=== PATIENT | female | born 1955 | race Caucasian/White ===

== ENCOUNTER 2019-10-16 10:11 | Inpatient (IN) | payer OTHER ==
[~2019-10-16] VITALS: Ht 162.5 cm; Wt 66.8 kg
[2019-10-16 10:20] VITALS: BP 136/823
[2019-10-16] MEDS ORDERED: ELIQUIS2.5 M1 PO (10:40)
[2019-10-16] MEDS ORDERED: NEURONTIN800 MG PO (10:40)
[2019-10-16] MEDS ORDERED: KEPPRA750 MG PO (10:41)
[2019-10-16] MEDS ORDERED: XANAX0.5 MG PO (10:41)
[2019-10-16] MEDS ORDERED: OXYCONTIN15 M1 PO (10:42)
[2019-10-16] MEDS ORDERED: TOPAMAX100 M1 PO (10:42)
[2019-10-16 11:37] LABS: BASO % 0.3 % (0.0-1.0); EOS # 0.1 10*3/uL (0.0-0.4); EOS % 0.5 % (1.0-4.0); HEMATOCRIT 42.5 % (37.0-47.0); LYMPH # 1.9 10*3/uL (1.3-4.4); MEAN CELL VOLUME 98.6 fl (81.0-99.0); MEAN CORPUSCULAR HGB 31.3 pg (27.0-31.0); MEAN CORPUSCULAR HGB CONC 31.8 g/dl (33.0-37.0); MEAN PLATELET VOLUME 8.8 fl (9.6-12.3); MONO # 0.3 10*3/uL (0.1-1.0); NEUT # 6.9 10*3/uL (2.3-7.9); NEUT % 74.9 % (47.0-73.0); PLATELET COUNT AUTOMATED 208 10*3/uL (130-400); RED BLOOD COUNT 4.31 10*6/uL (4.10-5.10); RED CELL DISTRI WIDTH 12.7 % (0-14.5); WHITE BLOOD COUNT 9.2 10*3/uL (4.8-10.8)
[2019-10-16 11:47] LABS: ACT PARTIAL THROMBO TIME 23.1 SECONDS (20.0-32.1)
[2019-10-16 11:54] LABS: ALBUMIN 3.5 gm/dl (3.1-4.5); ALKALINE PHOSPHATASE 119 U/L (45-117); BUN 16 mg/dl (7-24); CHLORIDE 114 mmol/L (98-107); CREATININE 1.09 mg/dL (0.55-1.02); POTASSIUM 3.9 mmol/L (3.5-5.1); SGOT/AST 16 IU/L (3-35); SGPT/ALT 33 U/L (12-78); SODIUM 139 mmol/L (136-145); TOTAL PROTEIN 7.6 gm/dL (6.4-8.2)
[2019-10-16 11:55] LABS: TROPONIN I 0.043 ng/ml (<0.045)
[2019-10-16 12:00] VITALS: BP 146/93
[2019-10-16 16:00] VITALS: BP 146/93
[2019-10-16 16:40] VITALS: BP 146/93
--- NOTE | 2019-10-16 16:40 | NUR ---
A 53, admitted to , under the services of ERMA Wilson DO with a diagnosis of SUSPECTED COVID-19, DYSPNEA. Chief complaint is SHORTNESS OF BREATH, CHEST PAIN. Patient arrived via bed from ER. Monitor applied. Initial assessment completed. Vital signs taken and recorded. ERMA WILSON DO notified of admission to the unit. Orders received. See assessment for past medical history, medications and allergies. Patient and/or family oriented to unit. [facility] visitation policy reviewed. Clothing/patient valuable form completed. SARINA BERMUDEZ
[2019-10-16] MEDS ORDERED: ELIQUIS5 M1 PO (17:25)
[2019-10-16] MEDS ORDERED: SOMA350 MG PO (17:26)
[2019-10-16] MEDS ORDERED: SEROQUEL XR300 MG PO (17:27)
[2019-10-16] MEDS ORDERED: PRILOSEC20 M1 PO (17:27)
[2019-10-16] MEDS ORDERED: ZOCOR20 MG PO (17:27)
[2019-10-16] MEDS ORDERED: VENT7GM INH (17:28)
[2019-10-16 20:00] VITALS: BP 123/67
--- NOTE | 2019-10-16 20:40 | NUR ---
SPOKE WITH DR LA REGARDING UPDATED MED REC. STATES SHE WILL TAKE A LOOK AT IT. ALSO NOTIFIED HER OF PATIENT COMPLAINT OF "05/13 CHRONIC BACK PAIN". PATIENT DOESN'T APPEAR TO BE IN ANY OVERT DISTRESS. VITALS STABLE. WILL MONITOR. AWAITING NEW ORDERS.
--- NOTE | 2019-10-16 22:35 | NUR ---
DR ABEL NOTIFIED OF CRITICAL TROPONIN 0.055.
--- NOTE | 2019-10-16 23:23 | NUR ---
OXYCODONE ADMINISTERED FOR PT C/O "05/13 BACK PAIN". WILL MONITOR.
[2019-10-17] VITALS: BP 97/68
[2019-10-17 00:48] VITALS: BP 100/64
[2019-10-17 05:42] VITALS: BP 106/78
[2019-10-17 06:35] LABS: BASO % 0.6 % (0.0-1.0); EOS # 0.2 10*3/uL (0.0-0.4); EOS % 2.1 % (1.0-4.0); LYMPH % 41.9 % (27.0-41.0); MEAN CELL VOLUME 96.1 fl (81.0-99.0); MEAN CORPUSCULAR HGB CONC 32.3 g/dl (33.0-37.0); MEAN PLATELET VOLUME 8.5 fl (9.6-12.3); MONO # 0.4 10*3/uL (0.1-1.0); MONO % 5.3 % (3.0-9.0); NEUT # 3.5 10*3/uL (2.3-7.9); NEUT % 49.7 % (47.0-73.0); PLATELET COUNT AUTOMATED 163 10*3/uL (130-400); RED BLOOD COUNT 4.06 10*6/uL (4.10-5.10); RED CELL DISTRI WIDTH 12.8 % (0-14.5); WHITE BLOOD COUNT 7.1 10*3/uL (4.8-10.8)
[2019-10-17 06:47] LABS: BUN 20 mg/dl (7-24); CHLORIDE 115 mmol/L (98-107); CREATININE 1.09 mg/dL (0.55-1.02); SODIUM 141 mmol/L (136-145)
[2019-10-17 08:00] VITALS: BP 112/72
--- NOTE | 2019-10-17 08:00 | NUR ---
VS STABLE. HEPARIN LOCK INPLACE. ALERT,ORIENTATED X 3. DENIES DISCOMFORT AT PRESENT TIME. TODD RAMSEYRN
[2019-10-17] MEDS ORDERED: OXYCODONE HCL10 M1 PO (10:23)
[2019-10-17 12:00] VITALS: BP 121/71
--- NOTE | 2019-10-17 13:17 | NUR ---
Ethnic Studies Professor in to talk to patient. Patient states lives at HOME with ALONE. There are 15 steps in the home. Physician: MAGGIE [facility]acy: [facility] Home health services: NONE Patient's level of ADLs: INDEPENDENT Patient has working utilities: YES DME: NONE Follow-up physician's appointment after d/c: PREFERS TO MAKE OWN AFTER DISCHARGE Does patient want to access PORTAL?: NO Discharge plan PT STATES SHE LIVES ALONE AND IS INDEPENDENT IN HER CARE. STATES SHE DOES NOT HAVE A RIDE TO GET HOME. WILL CHECK WITH HER INSURANCE TO SEE IF SHE HAS TRANSPORTATION BENEFITS. NO OTHER NEEDS AT THIS TIME. . LUCRECIA BURGOS
--- NOTE | 2019-10-17 13:49 | NUR ---
HOME DECORATOR contacted patients insurance. Patient does not have any travel benefits. HOME DECORATOR informed Entry Level Financial Analyst Diana Ruiz of this.
--- NOTE | 2019-10-17 13:53 | NUR ---
PT IN HALLWAY AGITATED AND DEMANDING RX FOR PAIN MEDICATION, TO BE TAKEN TO THE PHARMACY TO PICK IT UP. EXPLAINED TO PATIENT THAT SHE COULD NOT BE WALKING THUR THE HOSPITAL. THIS RN HAD FAXED RX TO PHARMACY TO BE FILLED PRIOR TO DISCHARGE. PATIENT ASKED TO RETURN TO ROOM. PATIENT REMAINS VERY AGITATED, "STATING YOUR THE ONE THAT WANTS ME OUT OF HERE, SO YOU BETTER GET IT DONE." TODD RAMSEY RN
--- NOTE | 2019-10-17 14:00 | NUR ---
PT STATING SHE DOES NOT HAVE A RIDE HOME. CALLED [facility] THEY STATE PT HAD TRASPORTATION BENEFITS IN [place] BUT HAS NEVER CHANGED IT TO [place]. TALKED WITH PT AND SHE STATES IT SHOULD BE THE SAME. GAVE HER THE NUMBER TO CALL AND HAVE IT CHANGED TO [place]. PT STATES SHE CAN NOT AFFORD THE CAB FARE OF $30.10 TO GET TO [place] AND HAS NO FRIENDS OR FAMILY TO COME AND GET HER. ASKED HER IF SHE HAD A CELL PHONE SO SHE COULD CALL [facility] HERSELF. STATES SHE WOULD.
--- NOTE | 2019-10-17 14:07 | NUR ---
PT IS DISCHARGED AND AWAITING RIDE TO HOME. REMAINS AGITATED AND ANGRY CURRENT SITUATION. TODD RAMSEY RN
--- NOTE | 2019-10-17 14:25 | NUR ---
PT CALLED BACK AND STATES SHE HAS A RIDE HOME. STATES SHE WANTS SOMEONE TO WHEEL HER DOWN TO GET HER PERSCRIPTION AND THEN SHE WANTS TO GO OUTSIDE AND WAIT FOR RIDE AND SMOKE. EXPLAINED WE ARE NON SMOKING FACILITY AND SHE CAN NOT SMOKE ON HOSPITAL PROPERTY. STATES SHE WILL GO OFF PROPERTY THEN. MARLY BROOKS INFORMED.
== END 2019-10-17 14:07 | disposition home or self-care (01) | DRG 204 ==
LOC: ED 10:11 → 5E 15:14 → EDBD 15:14 → 5E 15:14 → EDHOLD 15:14 → 5E 15:23
PROVIDERS: Emergency Medicine; Student in an Organized Health Care Education/Training Program; ADMIT Internal Medicine
DX: R05 Cough (principal); Z20.828 Contact with and (suspected) exposure to other viral communicable diseases; E87.8 Other disorders of electrolyte and fluid balance, not elsewhere classified; E83.41 Hypermagnesemia; M54.9 Dorsalgia, unspecified; G89.29 Other chronic pain; F31.9 Bipolar disorder, unspecified; Z88.8 Allergy status to other drugs, medicaments and biological substances; Z88.6 Allergy status to analgesic agent; Z79.01 Long term (current) use of anticoagulants; Z79.899 Other long term (current) drug therapy; Z86.73 Personal history of transient ischemic attack (TIA), and cerebral infarction without residual deficits; Z82.49 Family history of ischemic heart disease and other diseases of the circulatory system

== ENCOUNTER 2019-12-08 13:25 | Inpatient (IN) | payer OTHER, MEDICAID ==
[~2019-12-08] VITALS: Ht 162.6 cm; Wt 69.5 kg
[~2019-12-08 13:25] MED LIST: ELIQUIS2.5 M1 PO; ELIQUIS5 M1 PO; KEPPRA750 MG PO; NEURONTIN800 MG PO; OXYCODONE HCL10 M1 PO; OXYCONTIN15 M1 PO; PRILOSEC20 M1 PO; SEROQUEL XR300 MG PO; SOMA350 MG PO; TOPAMAX100 M1 PO; VENT7GM INH; XANAX0.5 MG PO; ZOCOR20 MG PO
[2019-12-08 13:29] VITALS: BP 138/71
[2019-12-08 14:52] LABS: BASO % 0.3 % (0.0-1.0); EOS # 0.2 10*3/uL (0.0-0.4); EOS % 2.6 % (1.0-4.0); HEMATOCRIT 39.1 % (37.0-47.0); LYMPH % 26.6 % (27.0-41.0); MEAN CELL VOLUME 98.7 fl (81.0-99.0); MEAN CORPUSCULAR HGB 31.6 pg (27.0-31.0); MEAN PLATELET VOLUME 8.7 fl (9.6-12.3); MONO # 0.3 10*3/uL (0.1-1.0); MONO % 4.1 % (3.0-9.0); NEUT # 4.9 10*3/uL (2.3-7.9); NEUT % 66.1 % (47.0-73.0); PLATELET COUNT AUTOMATED 273 10*3/uL (130-400); RED BLOOD COUNT 3.96 10*6/uL (4.10-5.10); RED CELL DISTRI WIDTH 12.7 % (0-14.5); WHITE BLOOD COUNT 7.3 10*3/uL (4.8-10.8)
[2019-12-08 15:05] LABS: BUN 5 mg/dl (7-24); CHLORIDE 114 mmol/L (98-107); CREATININE 0.97 mg/dL (0.55-1.02); POTASSIUM 3.8 mmol/L (3.5-5.1); SODIUM 142 mmol/L (136-145)
--- NOTE | 2019-12-08 15:56 | NUR ---
PT REQUESTING TO HAVE CODE STATUS CHANGED TO [facility] STATUS.
--- NOTE | 2019-12-08 16:08 | NUR ---
IV ATTEMPT X 4, DR HARDIN AWARE.
--- NOTE | 2019-12-08 16:24 | NUR ---
PROVIDED BOXED LUNCHA REQUESTED. DR HARDIN WILL ATTEMPT TO OBTAIN IV ACCESS.
[2019-12-08 17:08] VITALS: BP 128/70
[2019-12-08 17:20] VITALS: BP 143/89
--- NOTE | 2019-12-08 17:20 | NUR ---
Time: 1719 A 64 year old FEMALE admitted to 5E under services of ERMA WILSON DO. Pt. arrived via stretcher from ER. Chief complaint: BLISTER TO LEFT HEEL. BETH ADAMS
[2019-12-08] MEDS ORDERED: OXYCODONE HYDRO15 MG PO (17:36)
--- NOTE | 2019-12-08 18:20 | NUR ---
MEDICATED WITH PRN MORPHINE FOR CO LEFT HEEL PAIN RATED A 10/10. WILL ASSESS EFFECTIVENESS.
--- NOTE | 2019-12-08 19:57 | NUR ---
ORDER RECIEVED FROM DR. JAUREGUI FOR PATIENT TO HAVE HEEL RAISERS FOR WOUND ON LEFT FOOT. HE ALSO USED A DOPPLER ON THE PATIENTS LEFT FOOT AND WAS ABLE TO FIND A PULSE. HE STATED THEY WERE GOING TO WAIT FOR VASCULAR STUDIES TO COME BACK BEFORE DOING ANY PROCEDURES ON THE PATIENTS FOOT
[2019-12-08 20:00] VITALS: BP 124/77
--- NOTE | 2019-12-08 20:04 | NUR ---
SPOKE WITH DR. MEJIA, STATES SHE SPOKE WITH PHARMACY ABOUT THE PATIENTS MEDICATIONS THAT SHE IS ON AT HOME. SHE STATED SHE HAD PHARMACY CHANGE THE MEDICATION TO WHAT THE PATIENT TAKES ACCORDING TO WHAT PHARMACY SAID AND WOULD LIKE HER MED REC CHANGED FROM OXYCODONE TO PERCOCET 10/325 WHICH IS WHAT SHE TAKES AT HOME.
[2019-12-08] MEDS ORDERED: PERCOCET 10-321 EACH PO (20:09)
--- NOTE | 2019-12-08 20:11 | NUR ---
ALSO ASKED DR. MEJIA IF SHE WOULD LIKE TO HAVE THE PATIENTS BLOOD CULTURES COLLECTED THE DOCTOR BEFORE HAD PUT THE ORDER IN NURSE TO COLLECT AND THAT PATIENT HAS HAD A DOSE OF ANTIBIOTICS ALREADY. SHE SAID TO PUT THEM IN FOR NOW TO BE COLLECTED
--- NOTE | 2019-12-08 20:41 | NUR ---
PRN XANAX GIVEN FOR PT COMPLAINTS OF ANXIETY. CALL LIGHT WITHIN REACH, WILL MONITOR
--- NOTE | 2019-12-08 21:00 | NUR ---
PATIENT REQUESTING PAIN MEDICATION, BROUGHT IN PERCOCET AND ROXICODONE TO MAKE 10.325 OF PAIN MEDICATION. PATIENT REFUSED AND STATED THAT SHE TAKES 15MG OF OXYCODONE ALL THE TIME AND THAT IS WHAT HER DOCTOR FROM [place] PRESCRIBED HER. EXPLAINED TO THE PATIENT THAT THE DOCTOR AND PHARMACIST SEEN THAT THE LAST MEDICATION SHE HAD FILLED WAS FOR 10/325 OF PERCOCET. PATIENT STATED THAT HER DOCTOR HERE WHEN SHE MOVED UP HERE ATTEMPTED TO WEAN HER OFF OF HER MEDICATION. SHE STATED THE DOCTOR PUT HER ON 10/325 FOR A WEEK AND THEN TRIED 5/325 AND IT DIDN'T WORK AND SHE WAS WITHDRAWALING. PATIENT THEN PROCEEDED TO SAY THAT SHE WAS ALLERGIC TO TYLENOL AND COULDN'T TAKE IT. THIS WAS RELAYED TO DR. MEJIA AND SHE STATED TO JUST SEE IF SHE WILL TAKE THE OXYCODONE 5MG WITHOUT TYLENOL SINCE SHE STATES SHE IS ALLERGIC, BUT SHE DOESN'T WANT TO GIVE HER OXYCODONE 15MG BECAUSE THAT IS NOT THE LAST MEDICATION SHE HAD FILLED.
--- NOTE | 2019-12-08 21:14 | NUR ---
PRN OXYCODONE GIVEN FOR PT COMPLAINTS OF 10/10 BACK AND FOOT PAIN. PATIENT AWARE MEDICATION IS ONLY 5MG AND PATIENT STATED THAT WAS OK SHE WOULD TAKE IT, BUT SHE WANTS HER PAIN SHOT SOON SHE CAN HAVE IT.
--- NOTE | 2019-12-08 21:41 | NUR ---
PRN XANAX EFFECTIVE PER PT
--- NOTE | 2019-12-08 22:00 | NUR ---
PRN PAIN MEDICATION APPEARS EFFECTIVE, PT SLEEPING
--- NOTE | 2019-12-08 22:41 | NUR ---
PATIENTS IV WOKE HER UP, REQUESTING PAIN MEDICATION BECAUSE SHE STATES "THE PAIN JUST WONT STOP" RATING IT 9/10. CALL LIGHT WITHIN REACH, WILL MONITOR
--- NOTE | 2019-12-08 23:00 | NUR ---
PATIENT ASLEEP, PRN MEDICATION APPEARS EFFECTIVE, NO DISTRESS NOTED. CALL LIGHT WITHIN REACH
[2019-12-09] VITALS: BP 108/55
--- NOTE | 2019-12-09 03:29 | NUR ---
PATIENT REMAINS ASLEEP. SNORING RESPIRATIONS. CALL LIGHT WITHIN REACH, BED ALARM INTACT, WILL MONITOR
[2019-12-09 06:33] LABS: BASO % 0.3 % (0.0-1.0); EOS # 0.3 10*3/uL (0.0-0.4); EOS % 4.5 % (1.0-4.0); HEMATOCRIT 36.6 % (37.0-47.0); LYMPH # 2.1 10*3/uL (1.3-4.4); LYMPH % 29.8 % (27.0-41.0); MEAN PLATELET VOLUME 8.7 fl (9.6-12.3); MONO # 0.4 10*3/uL (0.1-1.0); MONO % 5.2 % (3.0-9.0); NEUT # 4.1 10*3/uL (2.3-7.9); NEUT % 59.8 % (47.0-73.0); PLATELET COUNT AUTOMATED 259 10*3/uL (130-400); RED BLOOD COUNT 3.66 10*6/uL (4.10-5.10); RED CELL DISTRI WIDTH 12.8 % (0-14.5); WHITE BLOOD COUNT 6.9 10*3/uL (4.8-10.8)
--- NOTE | 2019-12-09 06:43 | NUR ---
PRN ROXICODONE AND XANAX GIVEN FOR PT COMPLAINTS OF ANXIETY AND PAIN IN THE FOOT AND BACK RATING IT 10/10. CALL LIGHT WITHIN REACH, WILL MONITOR
[2019-12-09 06:45] LABS: ACT PARTIAL THROMBO TIME 30.5 SECONDS (20.0-32.1)
[2019-12-09 07:10] LABS: ALBUMIN 2.8 gm/dl (3.1-4.5); ALKALINE PHOSPHATASE 112 U/L (45-117); BUN 11 mg/dl (7-24); CHLORIDE 114 mmol/L (98-107); CREATININE 0.86 mg/dL (0.55-1.02); SGOT/AST 27 IU/L (3-35); SGPT/ALT 55 U/L (12-78); SODIUM 145 mmol/L (136-145); TOTAL PROTEIN 6.2 gm/dL (6.4-8.2)
[2019-12-09 07:17] LABS: FREE T4 0.65 ng/dl (0.76-1.46)
[2019-12-09 07:43] LABS: VITAMIN D, 25-HYDROXY 43.4 ng/mL (30-100)
[2019-12-09 08:00] VITALS: BP 118/76
--- NOTE | 2019-12-09 11:49 | NUR ---
PATIENT CO BACK PAIN AND LEFT HEEL PAIN THAT SHE STATES IS UNBEARABLE AT THIS TIME RATING IT A 10/10. REQUESTING PRN MORPHINE. MEDICATED WITH PRN MORPHINE AT THIS TIME. WILL ASSESS EFFECTIVENESS.
[2019-12-09 12:00] VITALS: BP 105/59
--- NOTE | 2019-12-09 12:49 | NUR ---
PATIENT SLEEPING, RESPS EASY AND REGULAR. DILAUDID EFFECTIVE.
--- NOTE | 2019-12-09 15:42 | NUR ---
PATIENT REQUESTING SOMETHING FOR BACK AND LEFT HEEL PAIN RATED A 10/10. MEDICATED WITH PRN ROXICODONE. PATIENT ALSO REQUESTING SOMETHING TO HELP HER GO TO THE BATHROOM. PRN DULCOLAX GIVEN. WILL ASSESS EFFECITVENESS.
--- NOTE | 2019-12-09 15:53 | NUR ---
PATIENT REQUESTING PRN XANEX FOR ANXIETY. MEDICATED WITH PRN XANEX PER PATIENT REQUEST. WILL ASSESS EFFECTIVENESS.
[2019-12-09 16:00] VITALS: BP 107/67
--- NOTE | 2019-12-09 16:42 | NUR ---
PATIENT STATES PAIN MEDICINE WAS ONLY SOMEWHAT EFFECTIVE.
--- NOTE | 2019-12-09 16:53 | NUR ---
PATIENT RESTING COMFORTABLY IN BED. XANEX EFFECTIVE.
[2019-12-09 20:00] VITALS: BP 129/72
--- NOTE | 2019-12-09 20:44 | NUR ---
SPOKE WITH DR. MEJIA AT THIS TIME. PATIENT STATES THAT SHE TAKES HER PRILOSEC TWICE A DAY AND THAT SHE IS ONLY GETTING IT ONCE A DAY HERE AND THAT HER STOMACH IS REALLY BURNING AND WOULD LIKE A DOSE, DR. MEJIA STATED IT WAS OK TO CHANGE IT TO BID AND GIVE HER A DOSE. ALSO NOTIFIED HER THAT PATIENTS IV THAT DR. HARDIN PLACED WENT BAD AND THE PATIENTS ARM IS EXTREMELY SWOLLEN AND 3 ATTEMPTS HAVE BEEN MADE BUT HAVE BEEN UNSUCCESSFUL, BUT WILL ASK ICU TO ATTEMPT. NO NEW ORDERS RECIEVED
--- NOTE | 2019-12-09 21:39 | NUR ---
PRN MORPHINE GIVEN FOR PT COMPLAINTS OF PAIN IN THE FOOT AND UPPER BACK/NECK. RATING IT 10/10. CALL LIGHT WITHIN REACH, WILL MONITOR
--- NOTE | 2019-12-09 23:28 | NUR ---
PRN XANAX GIVEN FOR PT COMPLAINTS OF ANXIETY. CALL LIGHT WITHIN REACH, WILL MONITOR
[2019-12-10] VITALS: BP 138/76
--- NOTE | 2019-12-10 00:28 | NUR ---
PRN XANAX APPEARS EFFECTIVE, PT SLEEPING
[2019-12-10] MEDS ORDERED: PERCOCET 5-3251 EACH PO (01:07)
[2019-12-10] MEDS ORDERED: DICYCLOMINE HYD20 MG PO (01:13)
--- NOTE | 2019-12-10 01:14 | NUR ---
MED REC UPDATED PER LIST PROVIDED BY PHARMACY
--- NOTE | 2019-12-10 06:40 | NUR ---
ANALI OROZCO [id number] Please refer to the physician's history and physical for past medical history, comorbid conditions, and allergies. Diagnosis: INABILITY TO AMBULATE DUE TO LEFT ANKLE OR FOOT Marcello Score: 20,LOW OR NO RISK WOUND DESCRIPTIONS: Wound Number: 1 Location of the wound: left heel Type of wound: stage 2 Thickness: Partial Size: 5.5cm x 6.7cm x <0.1cm Tunneling: none Undermining: none Sinus Tract: none Presence of Exudate: none Amount: none Color: Major Odor: None Periwound Skin Appearance: Erythema Wound edges: intact serum filled blister Pain (associated with wound): tender at time of assessment How does patient state this happened? pt stated this started two weeks and just kept getting better. Wound Number: 2 Location of the wound: left outer aspect near 5th toe Type of wound: DTI Size: 1.5cm x 1.5cm x <0.1cm Tunneling: none Undermining: none Sinus Tract: none Presence of Exudate: none Amount: none Color: purple, dark red Odor: None Periwound Skin Appearance: Normal Wound edges: closed Pain (associated with wound): tender at time of assessment How does patient state this happened? pt stated this started two weeks and just kept getting better. Wound Number: 3 Location of the wound: outer aspect left foot Type of wound: DTI Size: 2.5cm x 2.5cm x <0.1cm Tunneling: none Undermining: none Sinus Tract: none Presence of Exudate: none Amount: none Color: dark red, purple Odor: None Periwound Skin Appearance: Normal Wound edges: closed Pain (associated with wound): tender at time of assessment How does patient state this happened? pt stated this started two weeks and just kept getting better. Wound Number: 4 Location of the wound: plantar aspect of left foot below great toe Type of wound: DTI Size: 1.5cm x 2.5cm x <0.1cm Tunneling: none Undermining: none Sinus Tract: none Presence of Exudate: none Amount: None Color: Purple, dark red Odor: None Periwound Skin Appearance: Normal Wound edges: closed Pain (associated with wound): tender at time of assessment How does patient state this happened? pt stated this started two weeks and just kept getting better. Dressing changed to left heel per physician order. DSD appilied to outer aspect of left foot near 5th toe, outer aspect of left foot and plantar aspect of left foot below great toe. Patient tolerate dressing changes without diffcuilty. Call light within reach and bed in low position. Surface the patient is resting on: Isoflex SKIN PREVENTION RECOMMENDATION: 1. Pressure redistribution support surface as appropriate 2. Elevate heels 3. Remove boots/TEDS every shift and reapply 4. Head of bed 30 degrees as tolerated 5. Assess nutrition and hydration 6. Manage moisture 7. Avoid the use of containment devices while in bed 8. Use absorptive products on surfaces limit layers of linens on bed 9. Turn and reposition every 1-2 hours in bed and every 1 hour in chair as tolerated 10. Weight shifts every 15 minutes while up in chair 11. Offloading with pillows or device to keep heels elevated off bed 12. Monitor skin at least every shift 13. Inspect under medical devices twice a day WOUND TREATMENT RECOMMENDATIONS: Podiatry already consult. Arterial and venous studies ordered and should be performed today Left foot xray IMPRESSION: Chronic findings. No definite radiographic evidence of acute osteomyelitis. If symptoms persist, I would suggest an MRI if there are no biosafety concerns. Continue dressing change per podiatry to left heel Apply sureprep to left outer aspect near 5th toe, left outer aspect of foot and plantar aspect of left foot below great toe and allow time to dry then cover with dsd daily and prn for soiling. Continue heel raiser pro boots to bilateral feet while in bed. Patient states she will follow with Dr. Tate upon discharge.
--- NOTE | 2019-12-10 06:41 | NUR ---
PRN MORPHINE GIVEN FOR PT COMPLAINTS OF PAIN IN THE LEFT FOOT AND BACK. RATING IT 10/10. CALL LIGHT WITHIN REACH, WILL MONITOR
--- NOTE | 2019-12-10 07:00 | NUR ---
ASSUMED CARE OF PATIENT AT THIS TIME. PATIENT CO LEFT HEEL PAIN. DRESSINGS WERE CHANGED THIS AM, HEEL PROTECTORS ON. ASSESSMENT COMPLETE. VSS. PATIENT VOICES NO CONCERNS AT THIS TIME. CALL LIGHT IN REACH. WILL MONITOR.
--- NOTE | 2019-12-10 07:42 | NUR ---
NOTIFIED OF CRITICAL VANC RESULT OF 25.9
[2019-12-10 07:45] LABS: BASO % 0.5 % (0.0-1.0); EOS # 0.3 10*3/uL (0.0-0.4); EOS % 3.4 % (1.0-4.0); HEMATOCRIT 37.9 % (37.0-47.0); LYMPH # 2.2 10*3/uL (1.3-4.4); LYMPH % 26.2 % (27.0-41.0); MEAN CELL VOLUME 99.2 fl (81.0-99.0); MEAN CORPUSCULAR HGB 31.9 pg (27.0-31.0); MEAN CORPUSCULAR HGB CONC 32.2 g/dl (33.0-37.0); MEAN PLATELET VOLUME 8.6 fl (9.6-12.3); MONO # 0.3 10*3/uL (0.1-1.0); MONO % 3.9 % (3.0-9.0); NEUT # 5.6 10*3/uL (2.3-7.9); NEUT % 65.8 % (47.0-73.0); PLATELET COUNT AUTOMATED 281 10*3/uL (130-400); RED BLOOD COUNT 3.82 10*6/uL (4.10-5.10); RED CELL DISTRI WIDTH 12.7 % (0-14.5); WHITE BLOOD COUNT 8.6 10*3/uL (4.8-10.8)
--- NOTE | 2019-12-10 07:52 | NUR ---
PATIENT CO ANXIETY. MEDICATED WITH PRN XANEX. WILL ASSESS EFFECTIVENESS.
--- NOTE | 2019-12-10 07:56 | NUR ---
Nursing screen and occupational therapy order received. Will follow up with a patient for completion of an OT eval. Thank you. Cecelia Sanchez OTR/L
[2019-12-10 08:00] VITALS: BP 148/84
--- NOTE | 2019-12-10 08:03 | NUR ---
PHYSICAL THERAPY PT screen complete and chart reviewed. PT order received. Will follow. Thank you. Mariah Sotelo,PT,DPT
--- NOTE | 2019-12-10 08:04 | NUR ---
RESIDENCY COORDINATOR MADE AWARE OF PATIENTS NEW DTI TO LEFT FOOT. WOUND CARE NURSE ALSO STATED THAT SHE WILL LET PODIATRY KNOW OF THE KNEW WOUND AND WILL AWAIT RECOMMENDATIONS
[2019-12-10 08:06] LABS: CREATININE 1.14 mg/dL (0.55-1.02); POTASSIUM 4.6 mmol/L (3.5-5.1)
--- NOTE | 2019-12-10 08:52 | NUR ---
PATIENT RESTING IN BED COMFORTABLY. XANEX APPEARS TO BE EFFECTIVE.
--- NOTE | 2019-12-10 10:27 | NUR ---
Dr. Sotelo notified of wound care orders needed.
--- NOTE | 2019-12-10 10:57 | NUR ---
PATIENT OFF THE FLOOR AT THIS TIME FOR VENOUS AND ARTERIAL ULTRASOUNDS.
--- NOTE | 2019-12-10 11:01 | NUR ---
AUTOMATIC TOE LASTER FAXED NEW REFERRAL TO [facility] FOR REVIEW. PRECERT WILL BE REQUIRED. WILL NEED PT/OT EVALS TO COMPLETE REFERRAL.
--- NOTE | 2019-12-10 11:07 | NUR ---
ROXICODONE GIVEN PER PATIENT REQUEST FOR CO LEFT HEEL PAIN AND BACK PAIN RATED A 10/10. PATIENT LEAVING THE FLOOR AT THIS TIME FOR VENOUSE AND ARTERIAL ULTRASOUNDS.
--- NOTE | 2019-12-10 11:30 | NUR ---
Occupational therapy order received and chart reviewed. Patient out of the room for testing upon arrival. OTR will return at a later date for completion of an OT evaluation. Thank you. Cecelia Sanchez, OTR/L
[2019-12-10 12:00] VITALS: BP 138/79
--- NOTE | 2019-12-10 12:01 | NUR ---
PHYSICAL THERAPY Eval orders received chart reviewed attempted to see pt for assessment, however pt unavailable as out of room for multiple tests. Will follow at a later date. Ashli Allison PT
--- NOTE | 2019-12-10 12:17 | NUR ---
Claim Service Representative in to talk to patient. Patient states lives at HOME with ALONE. There are NO steps in the home. Physician: NONE AT THIS TIME [facility]acy: [facility] Home health services: NONE Patient's level of ADLs: INDEPENDENT Patient has working utilities: YES DME: NONE Follow-up physician's appointment after d/c: WILL FIND ONE AND MAKE APPOITNMENT Does patient want to access PORTAL?: NO Discharge plan PT LIVES AT HOME ALONE. STATES SHE IS INDEPENDENT IN HER CARE BUT HAS NOT BEEN ABLE TO CARE FOR HERSELF LATELY AND WOULD LIKE TO GO TO A REHAB PRIOR TO GOING HOME. LOCAL FACILITIES LISTED FOR PT AND SHE WOULD LIKE ORCHARDS AT THIS TIME. REFERRAL WILL BE MADE. PT STATES SHE WILL NOT HAVE A RIDE HOME ON DISCHARGE. WILL CONTINUE TO FOLLOW.. LUCRECIA BURGOS
--- NOTE | 2019-12-10 13:00 | NUR ---
PATIENT BACK TO FLOOR AT THIS TIME.
--- NOTE | 2019-12-10 15:00 | NUR ---
MEDICATED WITH PRN MORPHINE PER PATIENT REQUEST FOR CO LEFT HEEL AND BACK PAIN RATED A 10/10. WILL ASSESS EFFECTIVENESS.
--- NOTE | 2019-12-10 15:18 | NUR ---
PATIENT MEDICATED WITH PRN XANEX PER REQUEST FOR CO ANXIETY. WILL ASSESS EFFECTIVENESS.
[2019-12-10 16:00] VITALS: BP 141/78
--- NOTE | 2019-12-10 16:00 | NUR ---
PER PATIENT MORPHINE WAS SOMEWHAT EFFECTIVE.
--- NOTE | 2019-12-10 16:18 | NUR ---
PER PATIENT XANEX EFFECTIVE.
[2019-12-10 20:00] VITALS: BP 130/65
--- NOTE | 2019-12-10 20:00 | NUR ---
RESTING IN BED; C/O BED ALARM BEING ON. EXPLAINED TO PATIENT NEED FOR BED ALARM. PT. IS UNSTEADY ON HER FEET & USES A CANE. HEP LOCK OCCLUDED AT THIS TIME; WILL RESTART. BED ALARM; CALL LIGHT WITHIN REACH.
--- NOTE | 2019-12-10 22:55 | NUR ---
MORPHINE ADMINISTERED FOR PT C/O 10/10 PAIN IN LEFT HEEL AND BACK. WILL CONTINUE TO MONITOR AND REASSESS. XANAX ADMINISTERED FOR C/O ANXIETY.
--- NOTE | 2019-12-10 23:00 | NUR ---
ASSUMED CARE OF THIS PATIENT. A&OX3. C/O PAIN IN LEFT HEEL AND BACK, REQUESTING MORPHINE AND XANAX. RESPIRATIONS EASY AND UNLABORED. BED ALARM ACTIVATED. BED LOCKED IN THE LOWEST POSITION. CALL LIGHT IN REACH.
--- NOTE | 2019-12-10 23:40 | NUR ---
PT ASLEEP AT THIS TIME. NO SIGNS OF DISCOMFORT OR DISTRESS.
[2019-12-11] VITALS: BP 129/72
--- NOTE | 2019-12-11 01:21 | NUR ---
24 HOUR CHART CHECK COMPLETE.
--- NOTE | 2019-12-11 04:27 | NUR ---
MORPHINE ADMINISTERED FOR PT C/O 10/10 LEFT HEEL AND BACK PAIN. WILL CONTINUE TO MONITOR AND REASSESS.
--- NOTE | 2019-12-11 05:20 | NUR ---
PT ASLEEP. NO SIGNS OF DISCOMFORT OR DISTRESS NOTED. WILL CONTINUE TO MONITOR.
[2019-12-11 08:00] VITALS: BP 152/90
--- NOTE | 2019-12-11 08:25 | NUR ---
MORPHINE 2 MG GIVEN FOR C/O FOOT PAIN,03/13. XANAX 0.5 MG GIVEN FOR C/O ANXIETY.
--- NOTE | 2019-12-11 08:52 | NUR ---
Dr. Sotelo notified of wound care recommendations.
--- NOTE | 2019-12-11 09:01 | NUR ---
Occupational Therapy evaluation completed on five with full evaluation to follow. Recommend occupational therapy per plan of care and SNF upon discharge. Thank you for this referral. Cecelia Sanchez OTR/L
--- NOTE | 2019-12-11 09:28 | NUR ---
PT IWONA FOUND PILL IN PT BED AND BROUGHT IT TO ME. I THEN SENT IT TO PHARMACY TO VERIFY MED. MARIA A VERIFIED THAT MED WAS IN FACT A OXYCODONE 15 MG. I ASKEWD TO SEE IN PT PURSE SHE VERIFIED THAT SHE HAD NO MEDS WITH HER AND HAD DUMPED HER PURSE ON BED. IT MIGHT HAVE BEEN IN BOTTOM OF HER BAG. I NOTIFIED DR QUACH WHAT HAD TRANSPIRED AND ADVISED PATIENT THAT UPON D/C SHE HAD AN OXYCODONE 15 MG IN PHARMACY.
--- NOTE | 2019-12-11 11:15 | NUR ---
Physical Therapy evaluation completed on 5th floor with full evaluation to follow. Recommend physical therapy per plan of care and SNF upon discharge. Thank you for this referral. Ashli Allison PT
--- NOTE | 2019-12-11 11:41 | NUR ---
ORCHARDS DECLINED PT. REFERRAL WAS SENT TO [facility].
[2019-12-11 12:00] VITALS: BP 136/85
--- NOTE | 2019-12-11 12:00 | NUR ---
ARBORICULTURE INSTRUCTOR FAXED ADDITIONAL CLINICALS TO [facility]. THEY ARE STILL REVIEWING REFERRAL.
--- NOTE | 2019-12-11 12:31 | NUR ---
MORPHINE 2 MG GIVEN PRIOR TO BEDSIDE DEBRIDMENT.CONSENT FOR PROCEDURE OBTAINED. DR MENDOZA DEBRIDED LEFT HEEL PER PROTOCOL. PT TOLERATED WELL. PT HAD < 2 ML OF BLOOD LOSS WITH SCANT SEROUS FLUID DRAINED FROM BLISTER/WOUND. MEASUREMENTS OBTAINED PER PROTOCOL FOLLOWING PROCEDURE.DSD APPLIED BY DR MENDOZA AND MAINTAINED PER PODIATRY.NOVEL CORONAVIRUS SWAB COLLECTED. PT RESTING IN BED. BED IN LOW POSITION. CALL LIGHT IN REACH.
--- NOTE | 2019-12-11 13:30 | NUR ---
[facility] HAS ACCEPTED THE PATIENT AND PRECERT HAS BEEN STARTED,
[2019-12-11 16:00] VITALS: BP 127/80
[2019-12-11 20:00] VITALS: BP 102/63
--- NOTE | 2019-12-11 21:34 | NUR ---
PATIENT CALLED OUT TO NURSES STATION STATING THAT HER BLOOD SUGAR FELT LOW AND SHE NEEDED "CANDY". BLOOD SUGAR WAS 86 AFTER FINGER STICK. PATIENT STATES THAT IS LOW FOR HER AND REQUESTED APPLE JUICE.
[2019-12-12] VITALS: BP 107/58
--- NOTE | 2019-12-12 00:03 | NUR ---
PATIENT SLEEPING, SNORING RESPIRATIONS. AROUSES EASILY. DENIES ANY NEEDS AT THIS TIME. CALL LIGHT WITHIN REACH, WILL MONITOR
--- NOTE | 2019-12-12 01:54 | NUR ---
24 HR chart check completed.
--- NOTE | 2019-12-12 02:45 | NUR ---
PATIENT REMAINS SLEEPING. NO DISTRESS NOTED. BREATHING IS EASY AND REGULAR. CALL LIGHT WITHIN REACH, WILL MONITOR
[2019-12-12 08:00] VITALS: BP 113/76
--- NOTE | 2019-12-12 08:38 | NUR ---
DANCING TEACHER COMPLETED HENS.
--- NOTE | 2019-12-12 08:38 | NUR ---
PT COMPLAIN OF ANXIETY AND LOWER EXTREMITY PAIN. PT REFUSES ROXYCODONE AND PERCOCET. PT STATES WILL ONLY TAKE MORPHINE AT THIS TIME.
--- NOTE | 2019-12-12 08:38 | NUR ---
ASSESSMENT COMPLETE. PT LEFT FOOT WRAPPED, UNABLE TO ASSESS WOUND/PULSE. PT ABLE TO MOVE TOES, TOES WARM. PPP ON RIGHT FOOT, FAINT. PTCOMPLAIN OF NUMBNESS/TINGLING TO BILATERAL LOWER EXT AND HANDS A CHRONIC CONDITION, NO CHANGE IN PATIENT BASELINE N/T PER PATIENT.
--- NOTE | 2019-12-12 08:58 | NUR ---
PT STATES PAIN LOWER EXTREMITY 03/13. MORPHINE GIVEN.
--- NOTE | 2019-12-12 09:25 | NUR ---
PODIATRY AT BEDSIDE, PHYSICIAN CHANGE DRESSING. PT STATES MORPHINE "NOT KICKED IN YET" WILL CONTINUE TO MONITOR FOR EFFECTIVENESS OF PAIN MEDICATION
--- NOTE | 2019-12-12 10:40 | NUR ---
PHYSICAL THERAPY Patient seen this am 1:1 for therapy visit and was sitting up on EOB with OT visitor use assistant present upon therapist arrival. Patient identified by name / and reports bouts of mild dizziness, including 9/10 low back / L heel pain. Patient performed several sit to stand transfers at bedside, MIN A, use of walker standing support and demonstrated non compliance with NWB status L heel. Patient received several v/c's to improve WB status and dmeonstrates increased fatgue, tolerating < 1 minutes static stand each trial. Patient however was able to ambulate 15'x 2 to bathroom, wh walker, CGA, demonstrating very slow, cautious gait pattern, decreased stride and bouts of unsteady balance during all 90/180 turns. Patient returned to supine in bed with increaed fatigue and remained with call light, tray table and telephone. Will continue per POC as tolerated, total treatment time 17 minutes. Kirill Donald, ENAMEL BURNER
--- NOTE | 2019-12-12 10:45 | NUR ---
OT NOTE Pt was seen this A.M. 1:1 for 30 minute OT session. Upon arrival pt was supine in bed. Pt identified by name and and had complaints of 9/10 L heel and low back pain. Pt transferred supine to sit EOB with Hamida for assist with advancing LLE. Upon inital rise to the EOB pt had complaints of feeling dizzy. Educated pt on visual fixation and after aprox 60 seconds pt had no other complaints. While sitting EOB pt completed AROM to RUE and AAROM to LUE shoulder, elbow, wrist, and digits over all planes of motion for 1 X 10 to increase and restore maximum functional use. Prior to standing pt was able to verbalize her NWB to L heel precautions. Multiple sit to stand transfers were completed from bed level with Hamida and use of w/w for UE support. Challenged pt's static standing tolerance needed for increased I in self care tasks and functional transfers. Pt was able to tolerate aprox 2 minutes at a time before sitting due to fatigue, throughout static standing pt was 100% compliant with NWB to L heel. Pt then requested to use the bathroom, declining the bedside commode. Functional mobility was then completed to the bathroom with CGA and use of w/w, throughout pt required constant verbal prompts for slowing down due to being impulsive and constant verbal prompts due to being non-compliant with NWB to L heel. Pt transferred on/off standard commode with CGA and use of grab bar for UE support. Clothing management completed with CGA and toilet hygiene completed with supervision while seated. Pt then stood sink side while washing her hands with CGA and being non compliant with NWB to L heel. While standing sink side pt had two LOB that required Hamida to correct. Functional mobility completed back to the EOB where she transferred sit to supine with Hamida for assist with LLE, there she was left with call light in hand, tray table in place, and bed alarm activated for safety. Continue with rec D/C plan to SNF. REMINGTON Jensen
[2019-12-12 12:00] VITALS: BP 103/60
--- NOTE | 2019-12-12 12:35 | NUR ---
PT SLEEPING,NO DISTRESS NTOED
--- NOTE | 2019-12-12 12:41 | NUR ---
PT HAS BEEN ACCEPTED TO [facility]. WAITING ON PRECERT FOR PT TO GO. WILL CONTINUE TO FOLLOW.
--- NOTE | 2019-12-12 13:36 | NUR ---
PRECERT HAS BEEN OBTAINED. BUSINESS BANKING OFFICER NOTIFIED RN HOSPITALIST COORDINATOR AND TRUCK SHOP SUPERVISOR.
--- NOTE | 2019-12-12 14:20 | NUR ---
CORRECTIONAL PROGRAM SPECIALIST NOTIFIED [employer] OF PATIENTS DISCHARGE AND THE ABILITY TO HAVE A TRANSPORT VIA [facility] BETWEEN 3:45PM AND 4:15PM TODAY. CORRECTIONAL PROGRAM SPECIALIST ALSO NOTIFIED WORK MANAGER PERIOPERATIVEFidel OCHOA OF TRYING TO ARRANGE DISCHARGE AND TRANSPORTATION WITH [facility]. RN HOSPITALIST COORDINATOR WAS ALREADY NOTIFIED [employer].
--- NOTE | 2019-12-12 14:24 | NUR ---
PT COMPLAIN OF PAIN IN LEFT LOWER EXTREMITY, EXPLAINED TO PATIENT THAT WILL BE DISCHARGED TODAY. HAS NOT ATTEMPTED TO TAKE ORAL PAIN MEDIATION, OFFERED PATIENT OXY IR. PT REFUSES ORAL MEDICATIONS. WILL DISCUSS WITH PHYSICIAN CONTINUING TO ONLY GIVE MORPHINE PATIENT REQUESTS TO ONLY TAKE MORPHINE
[2019-12-12] MEDS ORDERED: PERCOCET 5-3251 EACH PO (14:36)
[2019-12-12] MEDS ORDERED: SOMA350 MG PO (14:36)
[2019-12-12] MEDS ORDERED: XANAX0.5 MG PO (14:36)
[2019-12-12] MEDS ORDERED: NEURONTIN800 MG PO (14:36)
--- NOTE | 2019-12-12 14:48 | NUR ---
MILL TENDER WASHING NOTIFIED OF PATIENT DISCHARGE. MILL TENDER WASHING SPOKE WITH WORK INFORMATION SERVICES CONSULTANTFidel OCHOA. [facility] IS TRANSPORT THE PATIENT TODAY BETWEEN 3:45P TO 4:00PM TODAY AT THE ER DOORS. MILL TENDER WASHING CALLED PATIENTS NEXT OF KIN AND LEFT A VOICEMAIL. [employer] WILL FAX DISCHARGE ORDERS.
--- NOTE | 2019-12-12 14:58 | NUR ---
PT GIVEN XANAX FOR ANXIETY.PT STATES THAT SHE CANNOT TAKE PERCOCET, WHICH IS WHAT IS ORDERED FOR [facility]
--- NOTE | 2019-12-12 15:09 | NUR ---
DISCUSS WITH PATIENT THAT I SPOKE WITH DR. QUACH AND RN UNABLE TO GIVE MORPHINE AT THIS TIME, PT IS DISCHARGED. PT DID NOT WANT RX FOR PERCOCET FOR [facility] DUE TO "ALLERGY" WHICH SHE DESCRIBES "HEART BURN". DISUCSS WITH PATIENT HEART BURN IS NOT CONSIDERED A TRUE ALLERGY HOWEVER, IS AN INTOLLERANCE. DR. QUACH AWARE AND IS DISCHARGING PATIENT TO [facility] WITH PERCOCET WRITTEN BY DR. ANGLIN. PT AT THIS TIME AGREEABLE TO TAKING OXY IR WHICH WAS PREVIOUSLY REFUSED. OXY IR GIVEN AT THIS TIME
--- NOTE | 2019-12-12 15:11 | NUR ---
PT REFUSE PICTURES OF WOUNDS PRIOR TO TRANSFER. REFUSE TO GET DRESSED PRIOR TO TRANSFER. IV REMOVED X2 (RIGHT AND LEFT ARM). DRESSING TO LEFT LOWER EXTREMITY REMAIN INTACT.
--- NOTE | 2019-12-12 15:39 | NUR ---
PT HAD AN OXY IR TABLET THAT HAD BEEN FOUND ON HER PERSON AND SENT TO PHARMACY, PHARMACY CAME UP AND RETURNED THE MEDICATION TO PATIENT. PT TO BE DISCHARGED PRIOR TO 6029
--- NOTE | 2019-12-12 15:55 | NUR ---
Discharge instructions reviewed with patient. Patient receptive and verbalizes understanding. Follow-up care at [facility]. Written instructions given to patient/ sent to [facility]. await [facility] to knot picker cloth patient NARCISO HAYWOOD
--- NOTE | 2019-12-12 16:38 | NUR ---
OCCUPATIONAL THERAPY CO-SIGN I approve of the Occupational Therapy notes written above. Cecelia Sanchez, OTR/L
--- NOTE | 2019-12-12 17:24 | NUR ---
CONTINUE TO AWAIT [facility] FOR [facility]FE
--- NOTE | 2019-12-12 17:46 | NUR ---
PT DISCHARGED TO [facility] VIA WHEELCHAIR
--- NOTE | 2019-12-13 08:10 | NUR ---
PHYSICAL THERAPY CO-SIGN I approve of the Physical Therapy notes written above. Ashli Allison PT
== END 2019-12-12 17:46 | disposition other institution (70) | DRG 607 ==
LOC: ED 13:25 → EDHOLD 15:59 → 5E 15:59
PROVIDERS: Emergency Medicine; Internal Medicine; ADMIT Internal Medicine
DX: S90.822A Blister (nonthermal), left foot, initial encounter (principal); I69.354 Hemiplegia and hemiparesis following cerebral infarction affecting left non-dominant side; M65.88 Other synovitis and tenosynovitis, other site; I73.9 Peripheral vascular disease, unspecified; G62.9 Polyneuropathy, unspecified; E87.8 Other disorders of electrolyte and fluid balance, not elsewhere classified; J44.9 Chronic obstructive pulmonary disease, unspecified; F31.9 Bipolar disorder, unspecified; M54.9 Dorsalgia, unspecified; G89.29 Other chronic pain; E78.5 Hyperlipidemia, unspecified; N18.9 Chronic kidney disease, unspecified; Z82.49 Family history of ischemic heart disease and other diseases of the circulatory system; Z86.718 Personal history of other venous thrombosis and embolism; Z72.0 Tobacco use; X58.XXXA Exposure to other specified factors, initial encounter; Y93.89 Activity, other specified; Y92.89 Other specified places as the place of occurrence of the external cause; Y99.8 Other external cause status; Z88.8 Allergy status to other drugs, medicaments and biological substances; Z88.6 Allergy status to analgesic agent; Z79.01 Long term (current) use of anticoagulants; Z79.899 Other long term (current) drug therapy; Z03.818 Encounter for observation for suspected exposure to other biological agents ruled out; Z86.711 Personal history of pulmonary embolism

== ENCOUNTER 2020-06-03 15:26 | Inpatient (IN) | payer OTHER, MEDICAID ==
[~2020-06-03] VITALS: Ht 162.5 cm; Wt 70.4 kg
[2020-06-03] VITALS (8 sets, daily range): BP systolic 78–96; BP diastolic 34–57
[~2020-06-03 15:26] MED LIST changes: +DICYCLOMINE HYD20 MG PO; +HYDROCODONE-AC1 EACH PO; +OXYCODONE HYDRO15 MG PO; +PERCOCET 10-321 EACH PO; +PERCOCET 5-3251 EACH PO; +QUETIAPINE FUM400 M1 PO
[2020-06-03 16:36] LABS: HEMATOCRIT 50.1 % (37.0-47.0); MEAN CELL VOLUME 97.3 fl (81.0-99.0); MEAN CORPUSCULAR HGB 31.1 pg (27.0-31.0); MEAN CORPUSCULAR HGB CONC 31.9 g/dl (33.0-37.0); MEAN PLATELET VOLUME 8.6 fl (9.6-12.3); PLATELET COUNT AUTOMATED 273 10*3/uL (130-400); RED BLOOD COUNT 5.15 10*6/uL (4.10-5.10); RED CELL DISTRI WIDTH 12.4 % (0-14.5); WHITE BLOOD COUNT 14.7 10*3/uL (4.8-10.8)
[2020-06-03 16:56] LABS: ALKALINE PHOSPHATASE 114 U/L (45-117); BUN 14 mg/dl (7-24); CHLORIDE 109 mmol/L (98-107); CPK 158 U/L (26-192); CREATININE 1.31 mg/dL (0.55-1.02); POTASSIUM 3.7 mmol/L (3.5-5.1); SGOT/AST 41 IU/L (3-35); SGPT/ALT 38 U/L (12-78); SODIUM 140 mmol/L (136-145); TOTAL PROTEIN 6.4 gm/dL (6.4-8.2)
[2020-06-03 16:59] LABS: TROPONIN I < 0.015 ng/ml (<0.045)
[2020-06-03 17:08] LABS: TOTAL CELLS COUNTED 100 #CELLS
[2020-06-03 17:09] LABS: BURR CELLS FEW; PLATELET SUFFICIENCY NORMAL (NORMAL)
[2020-06-03 18:23] LABS: BILIRUBIN 2+ (Negative); BLOOD Negative (Negative); CLARITY Clear (Clear); COLOR Dark Yellow (Yellow); GLUCOSE Negative (Negative); KETONE Trace (Negative); LEUKO ESTERASE 1+ (Negative); NITRITE Negative (Negative); PH 6.5 (4.5-8.0); SPECIFIC GRAVITY 1.015 (1.001-1.030)
[2020-06-03 18:32] LABS: BACTERIA 1+
[2020-06-04] VITALS (40 sets, daily range): BP systolic 71–106; BP diastolic 38–64
[2020-06-04 06:12] LABS: ALBUMIN 2.1 gm/dl (3.1-4.5); CREATININE 1.89 mg/dL (0.55-1.02); TOTAL PROTEIN 5.4 gm/dL (6.4-8.2)
[2020-06-04 06:13] LABS: HEMATOCRIT 50.1 % (37.0-47.0); MEAN CORPUSCULAR HGB 30.9 pg (27.0-31.0); MEAN CORPUSCULAR HGB CONC 31.5 g/dl (33.0-37.0); MEAN PLATELET VOLUME 9.1 fl (9.6-12.3); PLATELET COUNT AUTOMATED 291 10*3/uL (130-400); RED BLOOD COUNT 5.11 10*6/uL (4.10-5.10); RED CELL DISTRI WIDTH 12.8 % (0-14.5); WHITE BLOOD COUNT 10.6 10*3/uL (4.8-10.8)
[2020-06-04 06:16] LABS: POTASSIUM 4.7 mmol/L (3.5-5.1)
[2020-06-04 06:48] LABS: BURR CELLS FEW; TOTAL CELLS COUNTED 100 #CELLS
[2020-06-04 06:49] LABS: PLATELET SUFFICIENCY NORMAL (NORMAL)
== END 2020-06-04 11:07 | disposition short-term general hospital (02) | DRG 871 ==
LOC: ED 15:26 → EDHOLD 20:14 → ICCU 20:14 → EDHOLD 21:07 → 5E 22:48 → EDHOLD 23:11 → 5E 23:20 → ICCU 06-04 01:35
PROVIDERS: Emergency Medicine; Internal Medicine; ADMIT Internal Medicine; ATTEND Internal Medicine
PROC: 02H633Z Insertion of Infusion Device into Right Atrium, Percutaneous Approach (ICD-10-PCS; principal; 2020-06-03)
PROC: B548ZZA Ultrasonography of Superior Vena Cava, Guidance (ICD-10-PCS; 2020-06-03)
DX: A41.9 Sepsis, unspecified organism (principal); R65.21 Severe sepsis with septic shock; N17.0 Acute kidney failure with tubular necrosis; E44.0 Moderate protein-calorie malnutrition; K55.9 Vascular disorder of intestine, unspecified; C18.9 Malignant neoplasm of colon, unspecified; K56.600 Partial intestinal obstruction, unspecified as to cause; D75.89 Other specified diseases of blood and blood-forming organs; E87.8 Other disorders of electrolyte and fluid balance, not elsewhere classified; R74.01 Elevation of levels of liver transaminase levels; E11.65 Type 2 diabetes mellitus with hyperglycemia; E11.51 Type 2 diabetes mellitus with diabetic peripheral angiopathy without gangrene; E78.5 Hyperlipidemia, unspecified; E11.22 Type 2 diabetes mellitus with diabetic chronic kidney disease; E11.42 Type 2 diabetes mellitus with diabetic polyneuropathy; N18.30 Chronic kidney disease, stage 3 unspecified; G89.29 Other chronic pain; F31.9 Bipolar disorder, unspecified; J44.9 Chronic obstructive pulmonary disease, unspecified; K52.9 Noninfective gastroenteritis and colitis, unspecified; Z66 Do not resuscitate; Z51.5 Encounter for palliative care; F17.210 Nicotine dependence, cigarettes, uncomplicated; K63.89 Other specified diseases of intestine; Z88.0 Allergy status to penicillin; Z88.6 Allergy status to analgesic agent; Z88.8 Allergy status to other drugs, medicaments and biological substances; Z91.041 Radiographic dye allergy status; Z79.4 Long term (current) use of insulin; Z86.718 Personal history of other venous thrombosis and embolism; Z79.01 Long term (current) use of anticoagulants; Z86.711 Personal history of pulmonary embolism; Z86.73 Personal history of transient ischemic attack (TIA), and cerebral infarction without residual deficits; Z90.49 Acquired absence of other specified parts of digestive tract; Z90.710 Acquired absence of both cervix and uterus; Z82.49 Family history of ischemic heart disease and other diseases of the circulatory system; Z84.89 Family history of other specified conditions; Z68.26 Body mass index [BMI] 26.0-26.9, adult

== ENCOUNTER 2020-07-04 19:10 | Emergency (ER) | payer OTHER, MEDICAID ==
[~2020-07-04] VITALS: Ht 162.5 cm; Wt 70.3 kg
== END 2020-07-04 21:25 | disposition home or self-care (01) ==
LOC: ED 19:10
DX: S70.02XA Contusion of left hip, initial encounter (principal); M54.5 Low back pain; G89.29 Other chronic pain; Z91.041 Radiographic dye allergy status; Z88.8 Allergy status to other drugs, medicaments and biological substances; Z88.0 Allergy status to penicillin; Z79.899 Other long term (current) drug therapy; W19.XXXA Unspecified fall, initial encounter; Y93.89 Activity, other specified; Y92.89 Other specified places as the place of occurrence of the external cause; Y99.8 Other external cause status

== ENCOUNTER 2020-11-05 10:04 | Inpatient (IN) | payer OTHER, MEDICAID ==
[~2020-11-05] VITALS: Ht 162.5 cm; Wt 66.9 kg
[~2020-11-05 10:04] MED LIST changes: +KEPPRA500 MG PO; +TRILEPTAL150 MG PO; +TYLENOL325 M1 PO
[2020-11-05 10:13] VITALS: BP 132/74
[2020-11-05 11:01] LABS: BASO % 0.4 % (0.0-1.0); EOS # 0.1 10*3/uL (0.0-0.4); EOS % 1.1 % (1.0-4.0); HEMATOCRIT 34.4 % (37.0-47.0); LYMPH # 1.8 10*3/uL (1.3-4.4); MEAN CELL VOLUME 92.5 fl (81.0-99.0); MEAN CORPUSCULAR HGB 30.1 pg (27.0-31.0); MEAN CORPUSCULAR HGB CONC 32.6 g/dl (33.0-37.0); MEAN PLATELET VOLUME 8.8 fl (9.6-12.3); MONO # 0.4 10*3/uL (0.1-1.0); MONO % 3.4 % (3.0-9.0); NEUT # 8.4 10*3/uL (2.3-7.9); NEUT % 77.7 % (47.0-73.0); PLATELET COUNT AUTOMATED 214 10*3/uL (130-400); RED BLOOD COUNT 3.72 10*6/uL (4.10-5.10); WHITE BLOOD COUNT 10.7 10*3/uL (4.8-10.8)
[2020-11-05 11:17] LABS: BUN 9 mg/dl (7-24); CHLORIDE 113 mmol/L (98-107); CREATININE 0.95 mg/dL (0.55-1.02); POTASSIUM 4.2 mmol/L (3.5-5.1); SODIUM 141 mmol/L (136-145)
[2020-11-05 14:00] VITALS: BP 134/79
[2020-11-05 16:46] VITALS: BP 121/62
[2020-11-05 19:33] VITALS: BP 139/73
[2020-11-05 21:00] VITALS: BP 142/89; BP 147/89
[2020-11-05 22:04] LABS: BASO % 0.4 % (0.0-1.0); EOS # 0.2 10*3/uL (0.0-0.4); EOS % 1.6 % (1.0-4.0); HEMATOCRIT 35.9 % (37.0-47.0); LYMPH # 2.9 10*3/uL (1.3-4.4); MEAN CORPUSCULAR HGB 30.3 pg (27.0-31.0); MEAN CORPUSCULAR HGB CONC 32.6 g/dl (33.0-37.0); MEAN PLATELET VOLUME 8.9 fl (9.6-12.3); MONO # 0.3 10*3/uL (0.1-1.0); MONO % 3.3 % (3.0-9.0); NEUT # 6.8 10*3/uL (2.3-7.9); NEUT % 66.4 % (47.0-73.0); PLATELET COUNT AUTOMATED 220 10*3/uL (130-400); RED BLOOD COUNT 3.86 10*6/uL (4.10-5.10); RED CELL DISTRI WIDTH 12.9 % (0-14.5); WHITE BLOOD COUNT 10.3 10*3/uL (4.8-10.8)
[2020-11-05 22:20] LABS: ALBUMIN 3.4 gm/dl (3.1-4.5); ALKALINE PHOSPHATASE 114 U/L (45-117); BUN 8 mg/dl (7-24); CHLORIDE 111 mmol/L (98-107); CPK 46 U/L (26-192); CREATININE 0.88 mg/dL (0.55-1.02); SGOT/AST 7 IU/L (3-35); SGPT/ALT 23 U/L (12-78); SODIUM 142 mmol/L (136-145); TOTAL PROTEIN 7.2 gm/dL (6.4-8.2)
[2020-11-06] VITALS: BP 104/54
[2020-11-06 06:22] LABS: BASO % 0.3 % (0.0-1.0); EOS # 0.2 10*3/uL (0.0-0.4); EOS % 1.8 % (1.0-4.0); LYMPH # 2.8 10*3/uL (1.3-4.4); MEAN CELL VOLUME 93.9 fl (81.0-99.0); MEAN CORPUSCULAR HGB 30.7 pg (27.0-31.0); MEAN CORPUSCULAR HGB CONC 32.6 g/dl (33.0-37.0); MEAN PLATELET VOLUME 9.1 fl (9.6-12.3); MONO # 0.4 10*3/uL (0.1-1.0); NEUT # 6.8 10*3/uL (2.3-7.9); NEUT % 66.6 % (47.0-73.0); PLATELET COUNT AUTOMATED 234 10*3/uL (130-400); RED BLOOD COUNT 3.62 10*6/uL (4.10-5.10); RED CELL DISTRI WIDTH 12.9 % (0-14.5); WHITE BLOOD COUNT 10.2 10*3/uL (4.8-10.8)
[2020-11-06 06:44] LABS: ALBUMIN 3.3 gm/dl (3.1-4.5); ALKALINE PHOSPHATASE 108 U/L (45-117); BUN 9 mg/dl (7-24); CHLORIDE 109 mmol/L (98-107); CREATININE 0.88 mg/dL (0.55-1.02); POTASSIUM 4.1 mmol/L (3.5-5.1); SGOT/AST 12 IU/L (3-35); SGPT/ALT 24 U/L (12-78); SODIUM 138 mmol/L (136-145); TOTAL PROTEIN 6.9 gm/dL (6.4-8.2)
[2020-11-06 08:00] VITALS: BP 122/76
[2020-11-06 12:00] VITALS: BP 138/88
[2020-11-06] MEDS ORDERED: XANAX1 MG PO (14:04)
[2020-11-06] MEDS ORDERED: RIZATRIPTAN10 MG PO (14:05)
[2020-11-06] MEDS ORDERED: NEURONTIN800 MG PO (14:07)
[2020-11-06] MEDS ORDERED: DICYCLOMINE HYD10 MG PO (14:13)
[2020-11-06 16:00] VITALS: BP 138/82
[2020-11-06 20:00] VITALS: BP 154/79
[2020-11-07] VITALS: BP 149/69
[2020-11-07 08:00] VITALS: BP 141/67
[2020-11-07 12:00] VITALS: BP 145/58
[2020-11-07] MEDS ORDERED: OXYCODONE HCL5 MG PO ×2 (14:17)
[2020-11-07] MEDS ORDERED: OXYCONTIN20 M1 PO ×3 (14:17→15:20)
[2020-11-07] MEDS ORDERED: ZOFRAN 4 MG ED2 TAB PO ×2 (14:17)
[2020-11-07] MEDS ORDERED: ROXICODONE5 MG PO (15:20)
[2020-11-07] MEDS ORDERED: NEURONTIN800 MG PO (16:13)
[2020-11-07] MEDS ORDERED: QUETIAPINE FUM400 M1 PO (16:13)
[2020-11-07] MEDS ORDERED: XANAX1 MG PO (16:13)
[2020-11-07] MEDS ORDERED: KEPPRA500 MG PO (16:13)
[2020-11-07] MEDS ORDERED: ZOCOR20 MG PO (16:13)
== END 2020-11-07 16:32 | disposition hospice, home (50) | DRG 375 ==
LOC: ED 10:04 → EDHOLD 16:01 → 4E 16:01
PROVIDERS: Hospitalist; Internal Medicine; ADMIT Internal Medicine; ATTEND Internal Medicine
DX: C18.9 Malignant neoplasm of colon, unspecified (principal); K55.9 Vascular disorder of intestine, unspecified; D64.9 Anemia, unspecified; E87.8 Other disorders of electrolyte and fluid balance, not elsewhere classified; F31.9 Bipolar disorder, unspecified; F17.200 Nicotine dependence, unspecified, uncomplicated; J44.9 Chronic obstructive pulmonary disease, unspecified; E86.0 Dehydration; E78.5 Hyperlipidemia, unspecified; Z66 Do not resuscitate; N18.31 Chronic kidney disease, stage 3a; I12.9 Hypertensive chronic kidney disease with stage 1 through stage 4 chronic kidney disease, or unspecified chronic kidney disease; G89.29 Other chronic pain; M54.9 Dorsalgia, unspecified; Z51.5 Encounter for palliative care; Z88.0 Allergy status to penicillin; Z88.8 Allergy status to other drugs, medicaments and biological substances; Z91.041 Radiographic dye allergy status; Z90.49 Acquired absence of other specified parts of digestive tract; Z93.3 Colostomy status; Z90.710 Acquired absence of both cervix and uterus; Z82.49 Family history of ischemic heart disease and other diseases of the circulatory system; Z86.73 Personal history of transient ischemic attack (TIA), and cerebral infarction without residual deficits; Z86.718 Personal history of other venous thrombosis and embolism; Z86.711 Personal history of pulmonary embolism; K52.9 Noninfective gastroenteritis and colitis, unspecified

== ENCOUNTER 2020-12-08 13:12 | Emergency (ER) | payer OTHER, MEDICAID ==
[~2020-12-08 13:12] MED LIST changes: +DICYCLOMINE HYD10 MG PO; +OXYCODONE HCL5 MG PO; +OXYCONTIN20 M1 PO; +RIZATRIPTAN10 MG PO; +ROXICODONE5 MG PO; +XANAX1 MG PO; +ZOFRAN 4 MG ED2 TAB PO
[2020-12-08 13:47] LABS: BASO % 0.2 % (0.0-1.0); EOS # 0.1 10*3/uL (0.0-0.4); EOS % 0.6 % (1.0-4.0); HEMATOCRIT 35.2 % (37.0-47.0); LYMPH # 1.4 10*3/uL (1.3-4.4); LYMPH % 12.6 % (27.0-41.0); MEAN CELL VOLUME 96.2 fl (81.0-99.0); MEAN CORPUSCULAR HGB 30.1 pg (27.0-31.0); MEAN CORPUSCULAR HGB CONC 31.3 g/dl (33.0-37.0); MEAN PLATELET VOLUME 8.6 fl (9.6-12.3); MONO # 0.4 10*3/uL (0.1-1.0); MONO % 3.3 % (3.0-9.0); NEUT # 9.2 10*3/uL (2.3-7.9); PLATELET COUNT AUTOMATED 269 10*3/uL (130-400); RED BLOOD COUNT 3.66 10*6/uL (4.10-5.10); RED CELL DISTRI WIDTH 12.8 % (0-14.5)
[2020-12-08 14:02] LABS: ALBUMIN 2.6 gm/dl (3.1-4.5); ALKALINE PHOSPHATASE 208 U/L (45-117); BUN 6 mg/dl (7-24); CHLORIDE 112 mmol/L (98-107); CREATININE 0.94 mg/dL (0.55-1.02); LIPASE 54 U/L (73-393); POTASSIUM 3.9 mmol/L (3.5-5.1); SGOT/AST 63 IU/L (3-35); SGPT/ALT 233 U/L (12-78); SODIUM 139 mmol/L (136-145); TOTAL PROTEIN 6.8 gm/dL (6.4-8.2)
[2020-12-08] MEDS ORDERED: OXYCONTIN20 M1 PO (15:15)
[2020-12-08] MEDS ORDERED: OXYCODONE5 M1 PO (15:15)
== END 2020-12-08 16:15 | disposition home or self-care (01) ==
LOC: ED 13:12
PROVIDERS: Family Medicine
DX: R10.9 Unspecified abdominal pain (principal); G89.29 Other chronic pain; Z91.041 Radiographic dye allergy status; Z88.0 Allergy status to penicillin; Z88.8 Allergy status to other drugs, medicaments and biological substances; Z79.899 Other long term (current) drug therapy; Z98.890 Other specified postprocedural states; Z90.49 Acquired absence of other specified parts of digestive tract; Z90.711 Acquired absence of uterus with remaining cervical stump

== ENCOUNTER 2021-01-31 10:20 | Inpatient (IN) | payer OTHER, MEDICAID ==
[~2021-01-31] VITALS: Ht 160 cm; Wt 63.3 kg
[~2021-01-31 10:20] MED LIST changes: +OXYCODONE5 M1 PO
[2021-01-31 10:36] VITALS: BP 119/71
[2021-01-31 11:15] LABS: BASO % 0.4 % (0.0-1.0); EOS # 0.1 10*3/uL (0.0-0.4); EOS % 0.6 % (1.0-4.0); HEMATOCRIT 41.8 % (37.0-47.0); LYMPH # 1.7 10*3/uL (1.3-4.4); LYMPH % 21.7 % (27.0-41.0); MEAN CELL VOLUME 93.7 fl (81.0-99.0); MEAN CORPUSCULAR HGB 29.4 pg (27.0-31.0); MEAN CORPUSCULAR HGB CONC 31.3 g/dl (33.0-37.0); MEAN PLATELET VOLUME 9.1 fl (9.6-12.3); MONO # 0.2 10*3/uL (0.1-1.0); MONO % 2.8 % (3.0-9.0); NEUT # 5.8 10*3/uL (2.3-7.9); NEUT % 74.2 % (47.0-73.0); PLATELET COUNT AUTOMATED 292 10*3/uL (130-400); RED BLOOD COUNT 4.46 10*6/uL (4.10-5.10); RED CELL DISTRI WIDTH 13.2 % (0-14.5); WHITE BLOOD COUNT 7.8 10*3/uL (4.8-10.8)
[2021-01-31 11:32] LABS: ALBUMIN 3.6 gm/dl (3.1-4.5); ALKALINE PHOSPHATASE 148 U/L (45-117); BUN 6 mg/dl (7-24); CHLORIDE 109 mmol/L (98-107); CREATININE 0.94 mg/dL (0.55-1.02); LIPASE 97 U/L (73-393); POTASSIUM 3.8 mmol/L (3.5-5.1); SGOT/AST 13 IU/L (3-35); SGPT/ALT 36 U/L (12-78); SODIUM 138 mmol/L (136-145)
[2021-01-31 11:42] LABS: BILIRUBIN Negative (Negative); BLOOD Negative (Negative); CLARITY Clear (Clear); COLOR Yellow (Yellow); GLUCOSE Negative (Negative); KETONE Trace (Negative); LEUKO ESTERASE Trace (Negative); NITRITE Negative (Negative); PH 5.5 (4.5-8.0); SPECIFIC GRAVITY 1.015 (1.001-1.030); UROBILINOGEN 0.2 E.U./dl (0.0-1.0)
[2021-01-31 11:50] LABS: URINE AMPHETAMINES < 1000 (1000ng/ml); URINE BARBITURATES < 200 (200ng/ml); URINE BENZODIAZEPINES > 200 (200ng/ml); URINE CANNABINOIDS (THC) < 50 (50ng/ml); URINE COCAINE < 300 (300ng/ml); URINE METHADONE < 300 (300ng/ml); URINE OPIATES < 300 (300ng/ml)
[2021-01-31 11:54] LABS: URINE PHENCYCLIDINE < 25 (25ng/ml)
[2021-01-31 11:58] LABS: EPITHELIAL CELLS 0-2; MUCOUS TRACE; RBC 0-2 rbc/hpf (0-2)
[2021-01-31 13:22] VITALS: BP 130/66
[2021-01-31] MEDS ORDERED: ELIQUIS2.5 M1 PO (13:28)
[2021-01-31] MEDS ORDERED: KEPPRA750 MG PO (13:28)
[2021-01-31] MEDS ORDERED: ZOFRAN4 MG PO (13:31)
[2021-01-31 14:47] VITALS: BP 122/64
[2021-01-31 20:00] VITALS: BP 127/7
[2021-02-01] VITALS: BP 114/65
[2021-02-01 06:58] LABS: BASO % 0.3 % (0.0-1.0); EOS # 0.2 10*3/uL (0.0-0.4); EOS % 2.4 % (1.0-4.0); LYMPH # 2.7 10*3/uL (1.3-4.4); LYMPH % 43.5 % (27.0-41.0); MEAN CELL VOLUME 92.8 fl (81.0-99.0); MEAN CORPUSCULAR HGB 29.7 pg (27.0-31.0); MEAN PLATELET VOLUME 8.8 fl (9.6-12.3); MONO # 0.3 10*3/uL (0.1-1.0); MONO % 4.7 % (3.0-9.0); NEUT % 48.9 % (47.0-73.0); PLATELET COUNT AUTOMATED 245 10*3/uL (130-400); RED BLOOD COUNT 3.77 10*6/uL (4.10-5.10); RED CELL DISTRI WIDTH 13.2 % (0-14.5); WHITE BLOOD COUNT 6.2 10*3/uL (4.8-10.8)
[2021-02-01 07:28] LABS: BUN 6 mg/dl (7-24); CHLORIDE 109 mmol/L (98-107); CREATININE 0.89 mg/dL (0.55-1.02); FREE T4 0.85 ng/dl (0.76-1.46); POTASSIUM 3.8 mmol/L (3.5-5.1); SODIUM 138 mmol/L (136-145)
[2021-02-01 08:00] VITALS: BP 91/49
[2021-02-01 16:00] VITALS: BP 106/63
[2021-02-01 20:00] VITALS: BP 86/52; BP 92/66
[2021-02-02] VITALS: BP 91/47
[2021-02-02 06:41] LABS: BASO % 0.6 % (0.0-1.0); EOS # 0.1 10*3/uL (0.0-0.4); EOS % 1.8 % (1.0-4.0); HEMATOCRIT 39.4 % (37.0-47.0); LYMPH # 2.8 10*3/uL (1.3-4.4); LYMPH % 42.2 % (27.0-41.0); MEAN CELL VOLUME 94.9 fl (81.0-99.0); MEAN CORPUSCULAR HGB 29.4 pg (27.0-31.0); MEAN PLATELET VOLUME 9.3 fl (9.6-12.3); MONO # 0.3 10*3/uL (0.1-1.0); MONO % 4.3 % (3.0-9.0); NEUT # 3.3 10*3/uL (2.3-7.9); NEUT % 50.9 % (47.0-73.0); PLATELET COUNT AUTOMATED 274 10*3/uL (130-400); RED BLOOD COUNT 4.15 10*6/uL (4.10-5.10); RED CELL DISTRI WIDTH 13.2 % (0-14.5); WHITE BLOOD COUNT 6.6 10*3/uL (4.8-10.8)
[2021-02-02 06:52] LABS: BUN 8 mg/dl (7-24); CHLORIDE 115 mmol/L (98-107); CREATININE 0.91 mg/dL (0.55-1.02); POTASSIUM 4.3 mmol/L (3.5-5.1); SODIUM 133 mmol/L (136-145)
[2021-02-02 08:00] VITALS: BP 112/88
[2021-02-02] MEDS ORDERED: ZOCOR20 MG PO (10:50)
[2021-02-02] MEDS ORDERED: OXYCONTIN10 M1 PO (10:50)
[2021-02-02] MEDS ORDERED: ROXICODONE5 MG PO (10:50)
[2021-02-02] MEDS ORDERED: ELIQUIS2.5 M1 PO (10:50)
[2021-02-02] MEDS ORDERED: VENT7GM INH (10:50)
[2021-02-02] MEDS ORDERED: SIMVASTATIN20 MG PO (11:18)
[2021-02-02] MEDS ORDERED: PRILOSEC20 M1 PO (11:30)
== END 2021-02-02 12:30 | disposition home health service (06) | DRG 884 ==
LOC: ED 10:20 → EDHOLD 12:50 → 5E 12:50
PROVIDERS: Emergency Medicine; Internal Medicine; Student in an Organized Health Care Education/Training Program; ADMIT Student in an Organized Health Care Education/Training Program; ATTEND Student in an Organized Health Care Education/Training Program
DX: R54 Age-related physical debility (principal); C18.9 Malignant neoplasm of colon, unspecified; F31.9 Bipolar disorder, unspecified; J44.9 Chronic obstructive pulmonary disease, unspecified; E78.5 Hyperlipidemia, unspecified; I10 Essential (primary) hypertension; F43.10 Post-traumatic stress disorder, unspecified; R10.9 Unspecified abdominal pain; R00.1 Bradycardia, unspecified; F41.9 Anxiety disorder, unspecified; G89.29 Other chronic pain; Z20.822 Contact with and (suspected) exposure to COVID-19; E87.8 Other disorders of electrolyte and fluid balance, not elsewhere classified; Z51.5 Encounter for palliative care; R74.8 Abnormal levels of other serum enzymes; F17.210 Nicotine dependence, cigarettes, uncomplicated; Z87.898 Personal history of other specified conditions; Z71.6 Tobacco abuse counseling; Z86.718 Personal history of other venous thrombosis and embolism; Z86.711 Personal history of pulmonary embolism; Z86.73 Personal history of transient ischemic attack (TIA), and cerebral infarction without residual deficits; Z76.5 Malingerer [conscious simulation]; Z91.041 Radiographic dye allergy status; Z88.0 Allergy status to penicillin; Z88.6 Allergy status to analgesic agent; Z88.8 Allergy status to other drugs, medicaments and biological substances; Z90.49 Acquired absence of other specified parts of digestive tract; Z90.710 Acquired absence of both cervix and uterus; Z93.3 Colostomy status; Z82.49 Family history of ischemic heart disease and other diseases of the circulatory system; Z79.1 Long term (current) use of non-steroidal anti-inflammatories (NSAID); Z79.899 Other long term (current) drug therapy; Z79.51 Long term (current) use of inhaled steroids

== ENCOUNTER 2021-03-12 12:04 | Emergency (ER) | payer OTHER, MEDICAID ==
[~2021-03-12] VITALS: Ht 160 cm; Wt 66.2 kg
[~2021-03-12 12:04] MED LIST changes: +OXYCONTIN10 M1 PO; +SIMVASTATIN20 MG PO; +ZOFRAN4 MG PO
[2021-03-12 13:55] LABS: BASO % 0.2 % (0.0-1.0); EOS # 0.1 10*3/uL (0.0-0.4); EOS % 0.8 % (1.0-4.0); LYMPH # 2.3 10*3/uL (1.3-4.4); LYMPH % 20.6 % (27.0-41.0); MEAN CELL VOLUME 96.3 fl (81.0-99.0); MEAN CORPUSCULAR HGB CONC 31.2 g/dl (33.0-37.0); MEAN PLATELET VOLUME 8.9 fl (9.6-12.3); MONO # 0.5 10*3/uL (0.1-1.0); MONO % 4.1 % (3.0-9.0); NEUT # 8.3 10*3/uL (2.3-7.9); NEUT % 73.9 % (47.0-73.0); PLATELET COUNT AUTOMATED 178 10*3/uL (130-400); RED BLOOD COUNT 4.36 10*6/uL (4.10-5.10); RED CELL DISTRI WIDTH 14.3 % (0-14.5); WHITE BLOOD COUNT 11.3 10*3/uL (4.8-10.8)
[2021-03-12 14:52] LABS: ALBUMIN 3.4 gm/dl (3.1-4.5); ALKALINE PHOSPHATASE 109 U/L (45-117); BUN 10 mg/dl (7-24); CHLORIDE 108 mmol/L (98-107); CREATININE 1.02 mg/dL (0.55-1.02); POTASSIUM 3.6 mmol/L (3.5-5.1); SGOT/AST 11 IU/L (3-35); SGPT/ALT 19 U/L (12-78); SODIUM 139 mmol/L (136-145); TOTAL PROTEIN 7.7 gm/dL (6.4-8.2)
[2021-03-12 15:02] LABS: TROPONIN I < 0.015 ng/ml (<0.045)
[2021-03-12 19:21] LABS: BILIRUBIN Negative (Negative); BLOOD Negative (Negative); CLARITY Clear (Clear); COLOR Yellow (Yellow); GLUCOSE Negative (Negative); KETONE Negative (Negative); LEUKO ESTERASE 1+ (Negative); NITRITE Negative (Negative); PH 5.5 (4.5-8.0); SPECIFIC GRAVITY <= 1.005 (1.001-1.030); UROBILINOGEN 0.2 E.U./dl (0.0-1.0)
[2021-03-12 19:35] LABS: BACTERIA 1+; EPITHELIAL CELLS 0-2
[2021-03-12 21:21] LABS: URINE AMPHETAMINES < 1000 (1000ng/ml); URINE BARBITURATES < 200 (200ng/ml); URINE BENZODIAZEPINES > 200 (200ng/ml); URINE CANNABINOIDS (THC) < 50 (50ng/ml); URINE COCAINE < 300 (300ng/ml); URINE METHADONE < 300 (300ng/ml); URINE OPIATES < 300 (300ng/ml)
[2021-03-12 21:34] LABS: URINE PHENCYCLIDINE < 25 (25ng/ml)
== END 2021-03-13 19:29 | disposition short-term general hospital (02) ==
LOC: ED 12:04
PROVIDERS: Emergency Medicine; Family Medicine
DX: K56.609 Unspecified intestinal obstruction, unspecified as to partial versus complete obstruction (principal); Z88.0 Allergy status to penicillin; Z91.041 Radiographic dye allergy status; Z88.8 Allergy status to other drugs, medicaments and biological substances; Z87.891 Personal history of nicotine dependence